=== PATIENT | female | born 1980 | race Caucasian/White ===

== ENCOUNTER 2022-08-30 14:17 | Outpatient (CLI) | payer OTHER ==
--- NOTE | 2022-08-31 12:12 | XRAY Report ---
PROCEDURE: Cervical Spine 2 View INDICATIONS: CERVICALGIA TECHNIQUE: 3 view(s) of the cervical spine were acquired. COMPARISON: None. FINDINGS: Bones: No fractures or dislocations to the C6 level. Loss of normal cervical lordosis. The lateral masses of C1 appear intact on the odontoid view. No suspicious bony lesions. Mild bilateral facet a rthropathy at C4-C5. Soft tissues: No prevertebral soft tissue swelling. IMPRESSION: 1. Mild bilateral facet arthropathy in cervical spine. Reviewed by: Lizz Madden MD on 08/31/2022 12:10 PM PST Approved by: Lizz Madden MD on 08/31/2022 12:10 PM PST Station ID: [id number]
== END 2022-08-30 14:18 | disposition home or self-care (01) ==
LOC: DI 14:17
PROVIDERS: ATTEND Physician Assistant
DX: M47.812 Spondylosis without myelopathy or radiculopathy, cervical region (principal)

== ENCOUNTER 2023-10-23 09:16 | Emergency (ER) | payer OTHER ==
--- NOTE | 2023-10-23 10:20 | ED Physician Documentation ---
PD HPI ABD PAIN - Stated complaint Stated Complaint: GI - Chief complaint Chief Complaint: Abd Pain - History obtained from History obtained from: Patient - History of Present Illness Timing - onset: Last night, Yesterday Timing - duration: Days (1/2 day) Timing - details: Abrupt onset, Still present Quality: Cramping, Aching, Pain Location: Periumbilical, LLQ Radiation: No: Chest, Left flank Improved by: BM (she does feel the cramping more prior to diarrheal BM movements, and then had much increased pain over any prior eposidoes and noted some red to purple blood movements without clots. Minimal stool with it. Had several of those this morning and seems tapering amount.). No: Eating Worsened by: Position (lying flat or stretching out hurts more.), Palpation. No: Eating Associated symptoms: Nausea, Vomiting (few times, without blood.), Diarrhea, Hematochezia (red to purple without clots.). No: Fever Similar symptoms before: No diagnosis (has had episodes of mid/lower abd cramping pains with diarrheal, not noticable associated with particular foods or activities. Has psoriatic skin and arthritic disease for which sees Software Quality Automation Engineer and gets meds, including Humira. episodes considered IBS but no GI eval/scope etc as of yet.) Review of Systems Constitutional: denies: Fever, Chills Nose: denies: Rhinorrhea / runny nose, Congestion Throat: denies: Sore throat Respiratory: denies: Cough GI: reports: Abdominal Pain, Nausea, Vomiting, Diarrhea, Bloody / black stool. 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: Ovarian cysts Musculoskeletal: Other Derm: Psoriasis Other Past Medical History: psoriatic arthritis - Past Surgical History Past Surgical History: Yes /WIRE STRIPPING MACHINE OPERATOR: section, Hysterectomy, Other - Present Medications Home Medications: Ambulatory Orders Medication Instructions Recorded Confirmed Acetaminophen [Tylenol Arthritis] 650 mg PO DAILY 10/23/23 10/23/23 Adalimumab [Humira(Cf) Pen] 40 mg .ROUTE [id number] 10/23/23 10/23/23 Amox/Clav 875/125 [Augmentin] 1 each PO BID #10 tablet 10/23/23 Famotidine [Pepcid] 20 mg PO DAILY 10/23/23 10/23/23 HYDROcod/ACETAM 5/325 [[place] 5/325] 1 ea PO Q6H PRN #18 tablet 10/23/23 Ondansetron Odt [Zofran] 4 mg TL Q6H PRN #20 tablet 10/23/23 Semaglutide [Ozempic] 1 mg SQ 10/23/23 dexAMETHasone [Decadron] 4 mg PO DAILY #7 tablet 10/23/23 - Allergies Allergies/Adverse Reactions: Allergies Allergy/AdvReac Type Severity Reaction Status Date / Time promethazine [From Phenergan] Allergy Hives Verified 10/23/23 09:49 - Living Situation Living Situation: reports: With spouse/s.o. Living Arrangement: reports: At home - Social History Does the pt smoke?: No Smoking Status: Never smoker Does the pt drink ETOH?: No Does the pt have substance abuse?: No - Immunizations Immunizations are current?: Yes PD ED PE NORMAL - Vitals Vital signs reviewed: Yes - General General: Alert and oriented X 3, Well developed/nourished, Other (appears in discomfort due to lower/left abd pain. ) - Neck Neck: Supple, no meningeal sign, No adenopathy - Cardiac Cardiac: RRR, No murmur - Respiratory Respiratory: Clear bilaterally - Abdomen Abdomen: Normal bowel sounds, Soft, Non distended, No organomegaly, Other (tender in left side abd and lower left to mid abd. Not tender RLQ nor upper. There is some guarding and mild percussion tnederness. LLQ rebound. ) - Female Female : Deferred - Rectal Rectal: Deferred - Back Back: No CVA TTP - Derm Derm: Normal color, Warm and dry - Neuro Neuro: Alert and oriented X 3, No motor deficit, No sensory deficit, Normal speech Results - Vitals Vitals: Vital Signs - 24 hr 10/23/23 10/23/23 09:44 13:00 Temperature 36.4 C L Heart Rate 97 79 Respiratory 20 14 Rate Blood Pressure 130/103 H 126/57 L O2 Saturation 100 97 Oxygen O2 Source Room air - Labs Labs: Laboratory Tests 10/23/23 10/23/23 10/23/23 10:31 10:31 12:32 WBC 9.1 RBC 5.08 Hgb 15.6 Hct 48.5 H MCV 95.5 MCH 30.7 MCHC 32.2 RDW 14.3 Plt Count 257 MPV 10.0 Neut # (Auto) 7.8 H Lymph # (Auto) 0.9 L [place] # (Auto) 0.4 Eos # (Auto) 0.0 Baso # (Auto) 0.0 Absolute Nucleated RBC 0.00 Nucleated RBC % 0.0 Sodium 137 Potassium 4.2 Chloride 104 Carbon Dioxide 27 Anion Gap 6.0 BUN 14 Creatinine 0.8 Estimated GFR (MDRD) 79 L Glucose 111 H Calcium 10.0 Total Bilirubin 0.9 AST 15 ALT 13 Alkaline Phosphatase 68 Total Protein 7.7 Albumin 4.4 Globulin 3.3 Albumin/Globulin Ratio 1.3 Lipase 41 Urine Color LIGHT YELLOW Urine Clarity CLEAR Urine pH 8.5 H Ur Specific [place] <=1.005 Urine Protein NEGATIVE Urine Glucose (UA) NEGATIVE Urine Ketones 15 H Urine Occult Blood NEGATIVE Urine Nitrite NEGATIVE Urine Bilirubin NEGATIVE Urine Urobilinogen 0.2 (NORMAL) Ur Leukocyte Esterase NEGATIVE Ur Microscopic Review NOT INDICATED Urine Culture Comments NOT INDICATED - Rads (name of study) abd/pelvic CT Relevant Findings:: Prelim report reviewed (colonic wall thickening in left transverse, descending down to dsigmoid colon. No abscess nor signs of perforation. concerning for colitis.), EMP independent interpretation of test PD Medical Decision Making - ED course Complexity details: reviewed results (the CT findings of colitis would contradict a presumption of IBS and more likely lead to probability of her prior epiosdes being IBD, consider UC or Crohn's bahman in lieu of her having psoriatic arthritis and ankylosing spondylitis (she is not sure if has the HLA B-27 marker). ), re-evaluated patient (much improved symptoms. Had good Hgb of 15.6, normal wbc. However I would still be concerned for infectious overlay with the CT findings and bloody diarrhea. Does not however sound like c.diff. at this point. Presume underlying IBD.), considered differential (prior episodes presumed prelim IBS but has autoimmune otherwise, so consider IBD/crohns with current episode having inflammatory component and bleeding. CT can be useful to ensure not focal such as abscess/perforation. ), d/w patient ED course: CT showing colitis contin=gual from transverse to sigmoid without focal abscess/perf. This leads to idea of prior episdoes being IBD instead of IBS, and may lead to other treatment directions, though would want more diagnostic once better with colonoscopy. Has not gotten GI referral from PCP (on [facility] base). Has Software Quality Automation Engineer for her psoriatic arthritis. Alternatively, the current episdoe could be unrelated viral GE or such, but she states started as similar to other epidoses that she gets every month or two, lasting just few hours or so. I feel treating it as IBD with some decadron and pain meds. Also concern for infectious, so will treat with Augmentin, like would be for diverticulitis. Patient is agreeable to this. She is feeling much improved with IV medications of Toradol and pain meds, also given antinauseant. Departure - Departure Disposition: Home, Self Care Clinical Impression: Acute colitis, Lower abdominal pain, Bloody diarrhea Condition: Stable Record reviewed to determine appropriate education?: Yes Follow-Up: [facility] [Provider Group] OSCAR MILLIGAN MD [Physician No Access] - [facility] [Provider Group] Prescriptions: Amox/Clav 875/125 [Augmentin] 1 each PO BID #10 tablet dexAMETHasone [Decadron] 4 mg PO DAILY #7 tablet HYDROcod/ACETAM 5/325 [[place] 5/325] 1 ea PO Q6H PRN #18 tablet PRN Reason: Pain Ondansetron Odt [Zofran] 4 mg TL Q6H PRN #20 tablet PRN Reason: Nausea / Vomiting Comments: Your CT scan does show inflammation of the section of colon from the transverse to descending and sigmoid colon. This would suggest more likely that you are recurrent processes of been inflammatory bowel disease rather than IBS although this could be a different episode this time. More likely it is the same as you have had before only a more significant episode. Along those lines, it would be extensive to ultimately see a assistant foreman. They can do colonoscopy or more formal diagnosing. At this point would presume an inflammatory bowel disease with likely enough irritation for the bleeding. That should stop as the irritation improves. With the wall inflammation and bleeding, there is possibility that it is not only inflammatory but has progressed to sound infectious as well. Would typically treat this with a combination of some nausea medicine and pain medicine as well as a steroid anti-inflammatory presuming immune inflammation. This can be added to your normal psoriatic medicines in the short-term. So continue with your other usual medicines. Frequent fluids. [place] food diet for the short-term. Augmentin antibiotic for 5 days. Recheck if not improving well over the next 2 to 3 days and return if worse. Your blood count was good without any anemia. Therefore if you do have some ongoing bleeding there is "room to spare". Obviously follow-up if you have significant increase in bleeding volume or fevers increased pain or other concerns. Follow-up with your primary care or at least call and see if they can give a referral to gastroenterology. If there is significant time for that, it is potentially possible to just have a diagnostic colonoscopy done more locally. I gave her the phone number for the local surgery clinic. I also gave phone number referral for the [facility] and one of the assistant foreman there. We do not have a follow-up agreement with them per se but he could not call and see if one of the assistant foreman there would be able to set up an appointment without the referral ahead from your primary care. I sent your prescription to your preferred pharmacy. I am prescribing a short course of narcotic pain medication for you. These are potentially dangerous and addictive medications that should be used carefully. These medications may constipate you. Take an iliz-rbv-redjanj stool softener such as docusate twice daily with plenty of water while taking these medications. If you go 24 hours without a bowel movement, take azkn-fid-krraxmn MiraLAX, per package instructions. Do not drink or drive while taking these medications. If you received narcotic or sedating medications while in the emergency department do not drive for 24 hours. Store this medication in a safe, secure place and out of reach of children. It is a violation of federal law to give or sell this medication to another person or to use in a manner other than prescribed. The ED will not refill narcotic prescriptions, including prescriptions lost or stolen. You can dispose of unwanted medications at the [facility]'s office or at several pharmacies such as [facility]. Forms: PCP List Discharge Date/Time: 10/23/23 14:51
[2023-10-23 10:36] LABS: BASOPHILS % (AUTO) 0.2 %; EOSINOPHILS % (AUTO) 0.4 %; HCT - HEMATOCRIT 48.5 % (37.0-47.0); HGB - HEMOGLOBIN 15.6 g/dL (12.0-16.0); LYMPHOCYTES # (AUTO) 0.9 10^3/uL (1.5-3.5); LYMPHOCYTES % (AUTO) 9.9 %; MEAN CORPUSCULAR HEMOGLOBIN 30.7 pg (27.0-31.0); MEAN CORPUSCULAR HGB CONC 32.2 g/dL (32.0-36.0); MEAN CORPUSCULAR VOLUME 95.5 fL (81.0-99.0); MONOCYTES # (AUTO) 0.4 10^3/uL (0.0-1.0); MONOCYTES % (AUTO) 4.1 %; NEUTROPHILS # (AUTO) 7.8 10^3/uL (1.5-6.6); NEUTROPHILS % (AUTO) 85.3 %; PLT - PLATELET COUNT 257 10^3/uL (130-450); RED BLOOD COUNT 5.08 10^6/uL (4.20-5.40); RED CELL DISTRIBUTION WIDTH 14.3 % (12.0-15.0); WHITE BLOOD COUNT 9.1 x10^3/uL (4.8-10.8)
[2023-10-23 10:55] LABS: ALBUMIN 4.4 g/dL (3.2-5.5); ALBUMIN/GLOBULIN RATIO 1.3 (1.0-2.2); BILIRUBIN,TOTAL 0.9 mg/dL (0.2-1.0); CREATININE 0.8 mg/dL (0.6-1.3); POTASSIUM 4.2 mmol/L (3.5-4.5); TOTAL PROTEIN 7.7 g/dL (6.4-8.9)
[2023-10-23] MEDS ORDERED: iohexoL-300 100 ML VIAL ONE (11:41)
[2023-10-23] MEDS: DEXAMETHASONE 10 MG/ML VIAL IVP STA (12:02)
[2023-10-23] MEDS: KETOROLAC 15 MG/ML VIAL IVP STA (12:05)
[2023-10-23] MEDS: HYDROmorphone 0.5 MG/0.5 ML SYRINGE IVP STA (12:08)
[2023-10-23 12:55] LABS: BILIRUBIN,URINE NEGATIVE (NEGATIVE); GLUCOSE, URINE (UA) NEGATIVE (NEGATIVE); KETONES,URINE (UA) 15 mg/dL (NEGATIVE); LEUKOCYTE ESTERASE, URINE NEGATIVE (NEGATIVE); NITRITE,URINE NEGATIVE (NEGATIVE); OCCULT BLOOD,URINE NEGATIVE (NEGATIVE); PH,URINE 8.5 PH (5.0-7.5); PROTEIN,URINE NEGATIVE (NEGATIVE); UROBILINOGEN,URINE 0.2 (NORMAL) E.U./dL (NORMAL)
[2023-10-23 13:01] LABS: CLARITY,URINE CLEAR (CLEAR)
--- NOTE | 2023-10-23 13:09 | CT Report ---
PROCEDURE: Abdomen/Pelvis W INDICATIONS: left abd pain, blood sttols CONTRAST: Omni 300 100ml TECHNIQUE: After the administration of intravenous contrast, a CT scan of the abdomen and pelvis was performed. Images were recorded and evaluated at appropriate window settings. Reformats: coronal and sagittal. F or radiation dose reduction, the following was used: automated exposure control, adjustment of mA and /or kV according to patient size. COMPARISON: None. FINDINGS: Image quality: Diagnostic. Lower chest: Unremarkable. Liver: No solid mass. Gallbladder and biliary tree: No radiopaque stones or wall thickening. No biliary dilation. Spleen: No splenomegaly. Pancreas: No pancreatic ductal dilation. Adrenals: No adrenal nodule. Kidneys and ureters: No hydronephrosis. No renal cystic lesion which requires follow up. No solid mas s. Stomach, bowel and peritoneum: No bowel distension. No pathologic free fluid. There is colonic wall t hickening extending from the mid transverse colon to the sigmoid colon with mild pericolonic inflamma tion. Few diverticula are noted. Normal appendix. Lymph nodes: No central or retroperitoneal adenopathy. Vessels: No infrarenal aortic aneurysm. Mild atherosclerotic vascular calcifications. PELVIS Reproductive organs: Unremarkable. Bladder: No abnormal wall thickening, accounting for underdistention. Pelvic lymph nodes: No pelvic adenopathy by size criteria. Bones: No aggressive osseous abnormality. Mild degenerative changes of the spine. Other: No significant ventral or inguinal hernia. IMPRESSION: Colonic wall thickening extending from the mid transverse colon through the sigmoid colon with mild p ericolonic inflammation. Findings are concerning for colitis. Reviewed by: Kirit Lara MD on 10/23/2023 1:07 PM PDT Approved by: Kirit Lara MD on 10/23/2023 1:07 PM PDT Station ID: [id number]
[2023-10-23 13:23] VITALS: BP 126/57; O2SAT 97
[2023-10-23] MEDS: AMOX/CLAV 875 MG/125 MG TABLET PO STA (14:00)
[2023-10-23] MEDS: ONDANSETRON 4 MG/2 ML VIAL IVP STA (14:00)
== END 2023-10-23 14:51 | disposition home or self-care (01) ==
LOC: ED 09:16
DX: K52.9 Noninfective gastroenteritis and colitis, unspecified (principal); R10.32 Left lower quadrant pain; R10.33 Periumbilical pain; K92.1 Melena; Z79.899 Other long term (current) drug therapy
CPT/HCPCS: 36415; 80053; 81001; 81003; 83690; 85025; 87086; 96374; 96375; 99284